=== PATIENT | male | born 1930 | race Two or more races ===

== ENCOUNTER 2017-02-15 03:50 | Observation (INO) | payer OTHER ==
--- NOTE | ~2017-02-15 | TH ---
Unit #: [id number] #: [id number] Patient: BRADLEY WEI [id number] [address] [address] [id number] I MR#: [id number] NAME: BRADLEY WEI : 1930 SEX: M STUDY DATE/TIME: 02/16/2017 UNIT: [id number] ROOM: [facility] STUDY DESCRIPTION: NUCLEAR STUDY Attending Physician: Nitesh Boles M.D. Primary Care Physician: Primary Care Physician No CARDIOLOGY REPORT EXAM Stress nuclear study. INDICATION Dyspnea, hypertension, inability to exercise adequately. SUMMARY The patient received Lexiscan intravenously while at rest as well as technetium-99m Cardiolite 10.82 and 33.7 mCi at rest and stress respectively. Appropriate views were obtained. FINDINGS The heart rate increased from 70 to 99 and blood pressure decreased from 178/101 to 120/84. Patient experienced dizziness and nausea but no chest pain. The rest ECG and the stress ECG showed no diagnostic ST shifts. There were single PACs, but no significant dysrhythmias or heart block. Gated perfusion wall motion analysis shows end-diastolic volume 55 mL, ejection fraction 64% with no wall motion abnormalities. Planar images showed no significant patient motion either at rest or stress. There is no significant lung uptake, LV or RV enlargement. Summed stress scores is 1. Perfusion images demonstrate normal perfusion throughout the myocardium both at rest and stress. There is substantial intestinal artifact at both rest and stress. IMPRESSION 1. Myocardial perfusion scan shows no ischemia or infarction. 2. Normal wall motion with excellent ejection fraction. 3. Normal study. 4. Normal stress ECG. 5. Vagal-type reaction with medication. Dictated by... Tati Christine/alan Unit #: [id number] #: [id number] Patient: BRADLEY WEI TD: 02/16/2017 18:53 JOB #: [id number] CARDIOLOGY REPORT Page 1 of 1 X Jos Roca MD CARDIOLOGY REPORT
--- NOTE | ~2017-02-15 | CR72 ---
[facility] A Service of [facility] & [facility] RADIOLOGY TEXT RESULTS PATIENT: BRADLEY WEI LOCATION: [place] [address] : [birth year] UNIT #: [id number] AGE: [address]: Haritha Santiago MD SEX: M ORDER DR: [id number] [facility] [address] [facility] [place], [place] [address] [id number] MR#: [id number] Acc #: [id number] NAME: BRADLEY WEI : 1930 SEX: M STUDY DATE/TIME: 02/15/2017 3:34 UNIT: [facility] ROOM: STUDY DESCRIPTION: CR Chest Single View Portable Attending Physician: Papa Reddy M.D. Ordering Physician: Papa Reddy M.D. Primary Care Physician: Primary Care Physician No MEDICAL IMAGING REPORT This report is preliminary unless electronic signature is present EXAM Portable chest, 02/15/2017 INDICATION Shortness of air and wheezing today. PROCEDURE Frontal view chest. COMPARISON 04/27/2015 FINDINGS Heart size unchanged. No new dense opacity. No pneumothorax. IMPRESSION No dense consolidation. Mild cardiomegaly is similar to the prior. Dictated by... Po Kelsey M.D. THIS IS AN ELECTRONICALLY VERIFIED REPORT Po Kelsey M.D. at 02/15/2017 10:14 PM DENIS/felipe TD: 02/15/2017 05:16 JOB #: [id number] MEDICAL IMAGING REPORT Page 1 of 1 COPY
--- NOTE | ~2017-02-15 | CO ---
Unit #: [id number] #: [id number] Patient: BRADLEY DISLA [id number] [place] [id number] [facility]. [place], [place] [address] [id number] I MR#: [id number] NAME: BRADLEY DISLA ROOM: [address] Age: 87 Sex: M Admission Date: 02/15/2017 : 1930 Attending Physician: Haritha Santiago M.D. Consultation Date: 02/15/2017 CONSULTATION REPORT CHIEF COMPLAINT Chest discomfort. HISTORY OF PRESENT ILLNESS Mr. Disla speaks Brisa. An java application engineer phone was used for his interview and exam. Patient states that he has a three-day history of chest pain that has occurred at rest. It has been occurring off and on. He states that he does not do much, that he stays at home all the time. He is not very active, and this discomfort has occurred at rest, accompanied by some burning in his chest. It is nonradiating. No shortness of air. He states that he has not taken any other medications than the ones that have been prescribed for him. Note, despite use of an java application engineer, patient was a very poor historian, and many questions were asked, but he often answered with the answer that he has a lot of anxiety and makes his heart rate fast which increases his anxiety. Patient denied a history of diabetes, denied history of hypertension, denied history of dyslipidemia, and denied history of any heart workup despite the fact that he had a heart catheterization done in 2014. He denied heart catheterization, he denied angioplasty, and he denied stenting. He does have a history of a coronary catheterization with Dr. Lopez on March 14, 2015, which revealed a left ventricular pressure of 160/3 and an end-diastolic pressure of 18. He had a 40% stenosis in the first diagonal branch of the LAD, a 30% stenosis in the proximal right coronary artery, and normal left ventricular systolic function. I do not see an exact value. PAST MEDICAL HISTORY This is taken from the medications that he is on. He has a history of hypertension and history of COPD. HOME MEDICATIONS 1. Dicyclomine 10 mg every 6 hours as needed for abdominal pain. 2. Hyoscyamine 0.125 mg sublingual every 6 hours as needed for abdominal cramps. 3. Aspirin 81 mg daily. 4. Lisinopril 5 mg daily. 5. Singulair 10 mg daily. 6. Amitiza 24 mcg twice daily. 7. Tylenol 325 mg p.r.n. pain. 8. Metoprolol 25 mg twice daily. 9. Isosorbide (Imdur) 30 mg daily. Unit #: [id number] #: [id number] Patient: BRADLEY DISLA 10. Sertraline 25 mg daily. 11. Breo 100/25 mcg inhalation once daily. 12. Albuterol nebulizer treatments p.r.n. ALLERGIES Reports no known allergies. SOCIAL HISTORY Denies tobacco, denies alcohol. FAMILY HISTORY Unknown. REVIEW OF SYSTEMS Again, very difficult to obtain as the patient really did not answer the questions that I was asking despite java application engineer asking the questions. No obvious fevers or chills. Positive for constipation. Positive for chest pain and burning in the chest. Positive for anxiety. Positive for palpitations. All others negative. PHYSICAL EXAMINATION VITAL SIGNS: Temperature 98.6, pulse 78, respirations 22, and blood pressure 167/110. Prior blood pressures have been 161/101 and 151/106. Patient is 5 feet 4 inches, weight 63.5 kg. BMI 24. GENERAL: Well-developed, well-nourished, elderly Spanish male who speaks Brisa. [facility] phone was used. HEENT: Normocephalic and atraumatic. No xanthelasma. Pupils equal, round, and reactive to light. Extraocular movements intact. No jugular venous distention. No elevated CVP. HEART: S1 and S2. No S3 or S4. No murmurs, rubs, or gallops. No lift. PMI nondisplaced. LUNGS: Clear to auscultation bilaterally anteriorly and posteriorly. ABDOMEN: Soft, nontender, and nondistended. Positive bowel sounds. EXTREMITIES: No clubbing, cyanosis, or edema. With 2+ pulses bilaterally. NEUROLOGIC: Equal strength. No apparent problems with his vocalizations. No facial drooping. Moving all extremities spontaneously. DIAGNOSTIC STUDIES LABORATORY: Chemistry: Sodium 136, potassium 3.5, chloride 105, CO2 of 25, BUN 14, creatinine 1, glucose 126, total protein 7.3, albumin 3.6, AST 19, ALT 15, and alkaline phosphatase 60. BNP 67. Coagulation: D-dimer 720. Point of care troponin in the ER less than 0.05 and repeat less than 0.05. Hemoglobin 13, hematocrit 39.9, white blood cell count 5, and platelet count 112,000. IMAGING: CTA of the chest shows no pulmonary embolus. There is evidence of chronic fibrotic lung disease that is advanced. Chest x-ray shows no dense consolidation. Mild cardiomegaly is similar to previous chest x-ray. No new dense opacity. No pneumothorax. CARDIOLOGY: A 12-lead EKG shows a normal sinus rhythm, ventricular rate 71, no acute ST elevation, no ST depression, and no T wave abnormality. ASSESSMENT 1. Atypical chest discomfort with negative troponin x2, negative EKG x1, and CTA of the chest negative. 2. Accelerated hypertension. Unit #: [id number] #: [id number] Patient: BRADLEY DISLA PLAN We will resume his home medications and follow. We will obtain a 2D echocardiogram. Patient with known nonobstructive arteriosclerotic heart disease with history of 40% stenosis in the first diagonal branch of the left anterior descending, 30% stenosis in the proximal right coronary artery, and normal left ventricular systolic function. We will repeat a troponin. Dr. Lopez to follow for any further recommendations. Dictated by... Rajinder Ayon.P.R.N. for Tati Griffin/markel TD: 02/15/2017 18:03 JOB #: [id number] CONSULTATION REPORT Page 1 of 1 X X CONSULTATION REPORT
--- NOTE | ~2017-02-15 | EKG ---
PATIENT: BRADLEY WEI UNIT #: [id number] Ventricular Rate: 71 BPM Atrial Rate: 71 BPM P-R Interval: 188 ms QRS Duration: 94 ms Q-T Interval: 394 ms QTC Calculation(Bezet): 428 ms P [place]: 48 degrees Calculated R [place]: 36 degrees Calculated T [place]: 48 degrees Diagnosis Line: Sinus rhythm with marked sinus arrhythmia Diagnosis Line: Otherwise normal ECG Diagnosis Line: Diagnosis Line: Confirmed by BASILIO BABCOCK MD ([id number]) on 02/15/2017 Diagnosis Line: 11:28:09 PM INTERPRETING MD: SADIQ SALGADO
--- NOTE | ~2017-02-15 | EKG ---
PATIENT: BRADLEY WEI UNIT #: [id number] Ventricular Rate: 81 BPM Atrial Rate: 81 BPM P-R Interval: 156 ms QRS Duration: 84 ms Q-T Interval: 382 ms QTC Calculation(Bezet): 443 ms P [place]: 66 degrees Calculated R [place]: 34 degrees Calculated T [place]: 62 degrees Diagnosis Line: Normal sinus rhythm with sinus arrhythmia Diagnosis Line: Normal ECG Diagnosis Line: When compared with ECG of 15-FEB-2017 02:01, Diagnosis Line: No significant change was found Diagnosis Line: Confirmed by BASILIO BABCOCK MD ([id number]) on 02/16/2017 Diagnosis Line: 10:35:06 PM INTERPRETING MD: SADIQ SALGADO
--- NOTE | ~2017-02-15 | HP ---
Unit #: [id number] #: [id number] Patient: BRADLEY WEI [id number] [address] [address] [id number] I MR#: [id number] NAME: BRADLEY WEI ROOM: 549 Age: 87 Sex: M Admission Date: 02/15/2017 : 1930 Attending Physician: Haritha Santiago M.D. HISTORY AND PHYSICAL CHIEF COMPLAINT Chest pain. HISTORY OF PRESENT ILLNESS Patient is an 87-year-old Brisa male who basically presents today with intermittent chest pain. He states that it has been going on and off for the past one week, but he has been experiencing chest discomfort, hence his presentation to the emergency room. He denies any nausea or vomiting. He describes his chest pain associated with epigastric pain as a burning sensation. He admits to some chest pressure and also nonproductive cough and some wheezing. He says that he gets dizzy when he wheezes. He denies any melena, hematochezia, hemoptysis, or hematemesis at this time. PAST MEDICAL HISTORY 1. Chronic obstructive pulmonary disease. 2. Asthma. 3. Hypertension. 4. Anxiety/depression. PAST SURGICAL HISTORY 1. Lung surgery. 2. Cardiolite selective coronary angiography about two years ago on March 12, 2015. HOME MEDICATIONS 1. Breo Ellipta 100/25 mcg 1 inhalation daily. 2. Isosorbide mononitrate ER 30 mg p.o. daily. 3. Albuterol 0.63 mg inhalation 4 times daily. 4. Amitiza 24 mcg p.o. twice daily. 5. Lisinopril 5 mg p.o. daily. 6. Dicyclomine 10 mg every 6 hours. 7. Aspirin 81 mg p.o. daily. 8. Metoprolol 25 mg p.o. twice daily. 9. Levsin 0.125 mg sublingual every 6 hours. 10. Montelukast 10 mg p.o. at bedtime. 11. Sertraline 25 mg p.o. daily. 12. Acetaminophen 325 mg p.o. every 6 hours. ALLERGIES No known drug allergies. SOCIAL HISTORY No tobacco use, alcohol use, or illicit drug use at this time. Unit #: [id number] #: [id number] Patient: BRADLEY WEI FAMILY HISTORY Noncontributory. PHYSICAL EXAMINATION GENERAL: He was comfortable and not in any distress. VITAL SIGNS: Blood pressure was 168/98, pulse 98, respiratory rate 18, and temperature 98.6. HEENT: Pupils were equal and reactive to light and accommodation. NECK: Supple without thyromegaly. CHEST: Mostly clear. ABDOMEN: Full. Moved with respiration. Soft, nondistended, and nontender. EXTREMITIES: Mild 1+ edema. SKIN: Warm and dry with no rashes. LYMPHATICS: No enlarged peripheral lymphadenopathy that I could appreciate. DIAGNOSTIC STUDIES LABORATORY: Chemistries: Glucose of 126, BUN and creatinine 14 and 1, sodium and potassium 136 and 3.5, and chloride and bicarbonate 105 and 25. CBC: WBC 5, hemoglobin and hematocrit 13 and 39.9, and platelet count of 112,000. IMAGING: Chest x-ray showed no dense consolidation, mild cardiomegaly similar to the prior chest x-ray. CT scan of the chest and CT angiogram of his chest showed evidence of chronic fibrotic lung disease. No evidence of pulmonary embolism. Enlargement of central pulmonary arteries suggestive of some degree of hypertension. It also showed atherosclerotic disease in the aorta and coronary arteries. CARDIOLOGY: EKG showed sinus rhythm with marked sinus arrhythmia, otherwise normal with no ST changes. ASSESSMENT AND PLAN 1. Chest pain, questionable etiology, probably sounds more like dyspepsia. However, will get two sets of cardiac enzymes and consult Cardiology as patient has had a cardiac catheterization in the last two years. 2. Chronic obstructive pulmonary disease. Continue medications. 3. Hypertension. Continue medications. 4. Gastrointestinal prophylaxis. Put him on Protonix. 5. Deep venous thrombosis prophylaxis. Patient is on Lovenox 40 mg subcutaneous daily. 6. Will check a CBC and BMP in the morning. DISPOSITION Probably discharge patient home should cardiac workup be negative. Dictated by Haritha Santiago M.D. OO/am TD: 02/15/2017 20:58 JOB #: [id number] Unit #: [id number] #: [id number] Patient: BRADLEY WEI HISTORY AND PHYSICAL Page 1 of 1 X Haritha Santiago MD HISTORY AND PHYSICAL
--- NOTE | ~2017-02-15 | CT16 ---
[facility] A Service of [facility] RADIOLOGY TEXT RESULTS PATIENT: BRADLEY WEI LOCATION: [place] [address] : 32 UNIT #: [id number] AGE: [address]: Nitesh Boles MD SEX: M ORDER DR: [id number] [facility] [address] [facility] [facility] [place], [place] [address] [id number] MR#: [id number] Acc #: [id number] NAME: BRADLEY WEI : 1930 SEX: M STUDY DATE/TIME: 02/15/2017 8:29 UNIT: [facility] ROOM: STUDY DESCRIPTION: CT Angio Chest for PE Attending Physician: Milly Crow M.D. Ordering Physician: Milly Crow M.D. Primary Care Physician: No Primary Care Physician MEDICAL IMAGING REPORT This report is preliminary unless electronic signature is present EXAM CT of the chest with IV contrast and CT angiography of the pulmonary arteries. HISTORY Chest pain, shortness of breath, and wheezing since February 14. TECHNIQUE Transaxial imaging of the chest was performed with an IV bolus of contrast. CT angiography was performed with 3-D MIP multiplanar reconstructions through the pulmonary arteries and the aorta. This CT exam was performed with one or more of the following radiation dose reduction techniques: automatic exposure control, adjustment of mA and/or kV according to patient size, and iterative reconstruction. FINDINGS Scans through the lungs show advanced chronic lung disease with fibrosis. No discrete pulmonary nodules or masses are identified. There is evidence of thickening of the pleura along the fissures. There is atherosclerotic calcification of the aorta. Calcified nodes are seen in the aorticopulmonary window and subcarinal region. There is atherosclerotic disease in the coronary arteries. There is no evidence of pleural or pericardial fluid. Scans through the upper abdomen are unremarkable. CT angiography was performed with 3-D MIP multiplanar reconstructions. There are no pulmonary artery filling defects. There is prominence of the central pulmonary arteries. There is no significant aortic dilatation, aneurysm, or dissection. CONCLUSION 1. Evidence of chronic fibrotic lung disease advanced. 2. No evidence of pulmonary embolism. [facility] A Service of [facility] & [facility] RADIOLOGY TEXT RESULTS PATIENT: BRADLEY WEI LOCATION: [address] : [birth year] UNIT #: [id number] AGE: [address]: Nitesh Boles MD SEX: M ORDER DR: 3. Enlargement of the central pulmonary arteries suggesting some degree of pulmonary hypertension. 4. Atherosclerotic disease in the aorta and coronary arteries. Dictated by... Remington Price M.D. THIS IS AN ELECTRONICALLY VERIFIED REPORT Remington Price M.D. at 02/17/2017 12:00 PM EMMANUELLE/juli TD: 02/15/2017 10:29 JOB #: [id number] MEDICAL IMAGING REPORT Page 1 of 1 COPY
[2017-02-15 03:24] LABS: BASOPHIL% 0.8 % (0-2.5); EOSINOPHIL# 0.2 X10e3 (0-0.7); EOSINOPHIL% 3.3 % (0.0-7.0); HEMATOCRIT 39.9 % (38.0-50.0); LYMPHOCYTE# 2.1 X10e3 (1.0-3.5); LYMPHOCYTE% 41.7 % (17.0-45.0); MEAN CELL VOLUME 83.5 FL (83-96); MEAN CORPUSCULAR HEMOGLOBIN 27.1 PG (28-34); MEAN CORPUSCULAR HGB CONC 32.5 g/dL (30-36); MEAN PLATELET VOLUME 11.6 FL (6.5-11.5); MONOCYTE# 0.4 X10e3 (0-1.0); MONOCYTE% 8.7 % (3.0-12.0); NEUTROPHIL# 2.3 X10e3 (1.5-7.1); NEUTROPHIL% 45.5 % (40-75); PLATELET COUNT 112 X10e3 (140-420); RED BLOOD COUNT 4.79 X10e (3.90-5.60); RED CELL DISTRIBUTION WIDTH 13.6 % (11.0-15.5)
[2017-02-15 03:25] LABS: DIFF IND NO
[2017-02-15 03:37] LABS: POC - TROPONIN <0.05 ng/mL (<=0.05)
[2017-02-15 03:47] LABS: ALBUMIN SERUM 3.6 g/dL (3.5-5.0); ALKALINE PHOSPHATASE 60 U/L (32-92); ALT (SGPT) 15 U/L (10-40); AST (SGOT) 19 U/L (10-42); BILIRUBIN,TOTAL 0.2 mg/dL (0.2-2.0); BLOOD UREA NITROGEN 14 mg/dL (9-23); CALCIUM SERUM 8.5 mg/dL (8.4-10.2); CARBON DIOXIDE 25 mmol/L (22-31); CHLORIDE 105 mmol/L (100-111); GLOM FILT RATE Estimated 68.3 mL/min (>60); GLUCOSE FASTING 126 mg/dL (70-110); POTASSIUM 3.5 mmol/L (3.5-5.1); PROTEIN TOTAL SERUM 7.3 g/dL (6.0-8.3); SODIUM 136 mmol/L (135-145)
[2017-02-15 03:53] LABS: BILIRUBIN, DIRECT <0.1 mg/dL (0.0-0.2); BILIRUBIN,INDIRECT 0.1 mg/dL (0.0-0.9)
[2017-02-15 10:36] LABS: POC - CKMB 1.2 ng/mL (0.0-7.9); POC - TROPONIN <0.05 ng/mL (<=0.05)
[2017-02-15] MEDS ORDERED: ISOSORBIDE MONO30 M1 PO (13:10)
[2017-02-15] MEDS ORDERED: BREO ELLIPTA 11 EACH INH (13:10)
[2017-02-15] MEDS ORDERED: AMITIZA24 MCG PO (13:11)
[2017-02-15] MEDS ORDERED: ALBUTEROL0.63 MG/3 INH (13:11)
[2017-02-15] MEDS ORDERED: DICYCLOMINE HCL10 MG PO (13:12)
[2017-02-15] MEDS ORDERED: LISINOPRIL5 MG PO (13:12)
[2017-02-15] MEDS ORDERED: ASPIRIN EC81 M1 PO (13:13)
[2017-02-15] MEDS ORDERED: METOPROLOL TAR25 MG PO (13:14)
[2017-02-15] MEDS ORDERED: LEVSIN0.125 M3 SL (13:15)
[2017-02-15] MEDS ORDERED: MONTELUKAST SOD10 MG PO (13:15)
[2017-02-15] MEDS ORDERED: SERTRALINE HCL25 M1 PO (13:16)
[2017-02-15] MEDS ORDERED: MAPAP325 M1 PO (13:17)
[2017-02-15 16:53] LABS: CK TOTAL 51 IU/L (36-174)
[2017-02-16 04:49] LABS: HEMATOCRIT 45.9 % (38.0-50.0); HEMOGLOBIN 15.3 gm/dL (13.0-16.0); MEAN CELL VOLUME 82.3 FL (83-96); MEAN CORPUSCULAR HEMOGLOBIN 27.5 PG (28-34); MEAN CORPUSCULAR HGB CONC 33.4 g/dL (30-36); MEAN PLATELET VOLUME 11.3 FL (6.5-11.5); RED BLOOD COUNT 5.58 X10e (3.90-5.60); RED CELL DISTRIBUTION WIDTH 13.8 % (11.0-15.5); WHITE BLOOD COUNT 9.6 X10e3 (4.0-10.5)
[2017-02-16 07:22] LABS: ALBUMIN SERUM 4.1 g/dL (3.5-5.0); BILIRUBIN, DIRECT 0.2 mg/dL (0.0-0.2); BILIRUBIN,INDIRECT 0.7 mg/dL (0.0-0.9); BILIRUBIN,TOTAL 0.9 mg/dL (0.2-2.0); BUN/CREATININE RATIO 17.5; CALCIUM SERUM 9.8 mg/dL (8.4-10.2); CREATININE SERUM 1.2 mg/dL (0.6-1.4); GLOM FILT RATE Estimated 54.8 mL/min (>60); POTASSIUM 4.1 mmol/L (3.5-5.1); PROTEIN TOTAL SERUM 8.2 g/dL (6.0-8.3)
[2017-02-16 07:26] LABS: %MB 3.3 % (0.0-4.0); MB 4.6 ng/ml
[2017-02-16] MEDS ORDERED: PROTONIX PO (16:29)
== END 2017-02-16 18:09 | disposition home or self-care (01) | DRG 313 ==
LOC: CED 03:50 → CEDOF 10:20 → C5B 20:41
PROVIDERS: Emergency Medicine; Family Medicine
DX: R07.89 Other chest pain (principal); I10 Essential (primary) hypertension; J44.9 Chronic obstructive pulmonary disease, unspecified; F41.8 Other specified anxiety disorders; Z23 Encounter for immunization; R10.13 Epigastric pain; I25.10 Atherosclerotic heart disease of native coronary artery without angina pectoris; I51.7 Cardiomegaly; Z79.82 Long term (current) use of aspirin
CPT/HCPCS: 36415; 71010; 71275; 78452; 80048; 80061; 80076; 82550; 82553; 83880; 84443; 84484; 85025; 85027; 85379; 90732; 93005; 93017; 93306; 94640; 94760; 96374; 99285; A9500; G0009; G0378; J1650; J2405; J2785; J2930; Q9967